=== PATIENT | female | born 1955 | race Hispanic/Latino ===

== ENCOUNTER 2020-03-04 07:52 | Outpatient (CLI) | payer OTHER ==
--- NOTE | 2020-03-04 08:35 | ULT ---
Pelvic sonogram transabdominal imaging HISTORY: Pelvic pain. FINDINGS: Transabdominal imaging only. Urinary bladder is incompletely distended, limiting exam. No gross uterine abnormalities demonstrated, although uterus is incompletely evaluated. No free fluid or fluid collections apparent within the pelvis. Neither ovary visualized with transabdominal imaging. IMPRESSION : Very limited exam. No abnormalities are demonstrated. If symptoms warrant, please consider CT with co ntrast for better characterization.
--- NOTE | 2020-03-04 08:55 | ULT ---
ABDOMINAL ULTRASOUND HISTORY: Abdominal pain. FINDINGS: Liver: There is an anechoic cystic lesion seen in the posteromedial aspect of the right hepatic lobe which measures 2.6 cm x 2.6 cm x 1.9 cm which may represent 2 closely adjacent cysts versus a cyst with thin septation. Liver otherwise demonstrates a normal sonographic appearance. Gallbladder: Not visualized. Patient provides reported history of cholecystectomy. Common duct: Common duct is normal in caliber for postcholecystectomy changes measuring 0.9 cm in tammy meter. Pancreas: The limited visualized pancreas demonstrates a normal sonographic appearance. IVC: Limited visualized IVC has a normal sonographic appearance. Aorta: The aorta is normal in caliber. Spleen: Within normal limits. Kidneys: Kidneys demonstrate a normal sonographic appearance bilaterally with the right kidney measur ing 8.9 cm in length, and the left kidney measures 8.9 cm in length. IMPRESSION: 1. Anechoic cystic lesion right hepatic lobe demonstrating sonographic findings most compatible with a cyst, and this may represent 2 closely adjacent cysts or cyst with septation. 2. Nonvisualization of the gallbladder. Patient provides history of prior cholecystectomy.
== END 2020-03-04 07:53 | disposition home or self-care (01) ==
LOC: BICULT 07:52
PROVIDERS: ATTEND Family Medicine
DX: R10.2 Pelvic and perineal pain (principal); R10.9 Unspecified abdominal pain; K76.89 Other specified diseases of liver; Z90.49 Acquired absence of other specified parts of digestive tract
CPT/HCPCS: 76857; 93975

== ENCOUNTER 2025-02-12 13:54 | Outpatient (CLI) | payer OTHER | END 2025-02-12 13:55 | disposition home or self-care (01) | LOC: SCSBT 13:54 | PROVIDERS: ATTEND Student in an Organized Health Care Education/Training Program | DX: Z13.820 Encounter for screening for osteoporosis (principal); Z78.0 Asymptomatic menopausal state; M85.851 Other specified disorders of bone density and structure, right thigh; M85.852 Other specified disorders of bone density and structure, left thigh | CPT/HCPCS: 77080 ==